=== PATIENT | female | born 1965 | race African-American/Black ===

== ENCOUNTER 2025-05-29 15:52 | Emergency (ER) | payer BC, OTHER ==
[~2025-05-29] VITALS: Ht 162.6 cm; Wt 90.7 kg
[2025-05-29 15:56] VITALS: O2SAT 100
[2025-05-29] MEDS ORDERED: METH-653 MT (18:04)
[2025-05-29] MEDS ORDERED: LIDO700A30 TP (18:04)
[2025-05-29] MEDS ORDERED: IBUP-1455 MT (18:04)
[2025-05-29 18:39] VITALS: BP 135/78; PULSE 67; RESP 14; TEMP 36.8; O2SAT 100
== END 2025-05-29 18:41 | disposition home or self-care (01) ==
LOC: ER 15:52
DX: S13.4XXA Sprain of ligaments of cervical spine, initial encounter (principal); S33.5XXA Sprain of ligaments of lumbar spine, initial encounter; S80.12XA Contusion of left lower leg, initial encounter; Z90.710 Acquired absence of both cervix and uterus; Z88.5 Allergy status to narcotic agent; V49.40XA Driver injured in collision with unspecified motor vehicles in traffic accident, initial encounter; Y93.89 Activity, other specified; Y92.89 Other specified places as the place of occurrence of the external cause; Y99.8 Other external cause status
CPT/HCPCS: 99283